=== PATIENT | female | born 1980 | race African-American/Black ===

== ENCOUNTER 2025-10-25 16:21 | Emergency (ER) | payer MEDICAID ==
[~2025-10-25] VITALS: Ht 167.6 cm; Wt 68.0 kg
[2025-10-25 16:32] VITALS: O2SAT 96
[2025-10-25 17:44] LABS: BASOPHILS % 1.0 % (0.0-2.0); EOSINOPHILS % 3.6 % (0.0-5.0); HEMATOCRIT. 36.8 % (36.0-48.0); HEMOGLOBIN. 12.0 g/dL (12.0-16.0); LYMPHOCYTES % 47.2 % (20.0-50.0); MEAN PLATELET VOLUME 8.5 fl (7.4-10.4); MONOCYTES % 11.7 % (2.0-8.0); NEUTROPHILS % 36.5 % (40.0-76.0); PLATELET 260 x1000/uL (130-400); RED BLOOD CELL COUNT 4.08 mill/uL (4.2-5.4); RED CELL DISTRIBUTION WIDTH 13.4 % (11.6-14.6)
[2025-10-25 18:01] LABS: CREATININE 1.0 mg/dL (0.6-1.0)
[2025-10-25 18:02] LABS: TROPONIN I HIGH SENSITIVITY 19 ng/L (3.0-34); UREA NITROGEN BLOOD 6 mg/dL (9-23)
[2025-10-25 18:03] LABS: ASPARTATE AMINOTRANSFERASE 20 IU/L (<34)
[2025-10-25 18:04] LABS: BILIRUBIN DIRECT < 0.1 mg/dL (<=3.0); BILIRUBIN TOTAL 0.3 mg/dL (0.1-1.0); PROTEIN TOTAL 6.5 g/dL (6.0-8.3)
[2025-10-25 18:07] LABS: HCG SCREEN NEGATIVE
[2025-10-25 18:56] VITALS: BP 149/92; PULSE 78; RESP 17; TEMP 37.1; O2SAT 96
[2025-10-25] MEDS: IBUPROFEN 600MG TABLET PO ONE (18:56)
== END 2025-10-25 18:58 | disposition home or self-care (01) ==
LOC: ER 16:21
DX: R07.89 Other chest pain (principal); E78.00 Pure hypercholesterolemia, unspecified; I10 Essential (primary) hypertension; J45.909 Unspecified asthma, uncomplicated; Z90.710 Acquired absence of both cervix and uterus
CPT/HCPCS: 36415; 71045; 80048; 80076; 83880; 84484; 84703; 85025; 93005; 99285